=== PATIENT | male | born 1935 | race Caucasian/White ===

== ENCOUNTER → 2017-10-28 12:32 | Outpatient (CLI) | payer OTHER, SELFPAY ==
[2017-10-28 13:06] LABS: Add Manual Diff / Slide Review NO; Basophils Percent Auto 0.5 % (0-2); Eosinophils Percent Auto 2.3 % (2-4); Hematocrit 39.9 % (41-53); Hemoglobin 13.8 g/dL (13.5-17.5); Mean Corpuscular HGB Conc 34.7 % (30-36); Mean Corpuscular Hemoglobin 31.6 PG (26-34); Mean Corpuscular Volume 91.2 fL (80-100); Monocytes Percent Auto 6.3 % (3-14); Neutrophils Absolute Auto 6200 /uL (3000-5900); Neutrophils Percent Auto 72.9 % (50-75); Platelet Count 213 X10^3/uL (150-400); Red Blood Cell Count 4.38 X10^6/uL (4.5-5.9); Red Cell Distribution Width 12.4 % (11.6-14.8); White Blood Cell Count 8.5 X10^3/uL (4.5-11.0)
[2017-10-28 13:25] LABS: Alanine Aminotransferase 21 IU/L (21-72); Albumin 4.2 g/dL (3.5-5.0); Albumin Globulin Ratio 1.6 (1.0-2.8); Alkaline Phosphatase 68 U/L (38-126); Aspartate Aminotransferase 29 IU/L (17-59); Bilirubin Total 0.3 mg/dL (0.2-1.3); Blood Urea Nitrogen 26 mg/dL (9-20); Calcium 8.9 mg/dL (8.4-10.2); Carbon Dioxide 29 mmol/L (22-32); Chloride 98 mmol/L (98-107); Estimated Glomerular Filt Rate 52.9 mL/min (>60); Globulin 2.7 g/dL (1.7-4.1); Glucose 112 mg/dL (80-110); HEMOLYSIS 18 (0-50); Potassium 4.5 mmol/L (3.4-5.1); Sodium 136 mmol/L (137-145); Total Protein 6.9 g/dL (6.3-8.2)
[2017-10-28 15:35] LABS: Free T4, Direct Thyroxine 1.12 ng/dL (0.78-2.19)
[2017-10-28 15:49] LABS: Thyroid Stimulating Hormone 2.95 uIU/mL (0.47-4.68)
== END ==
PROVIDERS: PCP Physician Assistant; Visit Provider Physician Assistant
DX: E03.9 Hypothyroidism, unspecified (principal); I10 Essential (primary) hypertension
CPT/HCPCS: 36415; 80053; 84439; 84443; 85025

== ENCOUNTER 2018-01-22 07:18 | Emergency (ER) | payer OTHER, SELFPAY ==
[2018-01-22] VITALS (28 sets, daily range): BP systolic 57–242; BP diastolic 24–215; PULSE 74–102; RESP 12–22; TEMP 36.4–36.6; O2SAT 88–100; BMI 27.8
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
--- NOTE | 2018-01-22 07:38 | PC.NURSE ---
while maintaining cervical stabilization, moved from stretcher to ct table, remain alert and awake, reports, left leg pain, skin warm dry pink. remain with cervical collar and denies nausea.
[2018-01-22 07:39] LABS: Add Manual Diff / Slide Review NO; Basophils Percent Auto 0.4 % (0-2); Eosinophils Percent Auto 2.7 % (2-4); Hematocrit 38.9 % (41-53); Hemoglobin 13.2 g/dL (13.5-17.5); Lymphocytes Percent Auto 22.8 % (25-40); Mean Corpuscular HGB Conc 33.9 % (30-36); Mean Corpuscular Hemoglobin 31.4 PG (26-34); Mean Corpuscular Volume 92.5 fL (80-100); Monocytes Percent Auto 4.6 % (3-14); Neutrophils Absolute Auto 6300 /uL (3000-5900); Neutrophils Percent Auto 69.5 % (50-75); Platelet Count 223 X10^3/uL (150-400); Red Blood Cell Count 4.21 X10^6/uL (4.5-5.9); Red Cell Distribution Width 12.6 % (11.6-14.8); White Blood Cell Count 9.1 X10^3/uL (4.5-11.0)
--- NOTE | 2018-01-22 07:45 | PC.NURSE ---
pt doesnt want to call family at this time.
[2018-01-22 07:47] LABS: Prothrombin Time 10.7 SECONDS (10.1-12.7)
[2018-01-22 07:50] LABS: PTT Partial Thromboplastin Tim 27 SECONDS (26.4-36.2)
--- NOTE | 2018-01-22 07:50 | PC.NURSE ---
right eye sclera red.
[2018-01-22 07:52] LABS: Alanine Aminotransferase 45 IU/L (21-72); Albumin 4.2 g/dL (3.5-5.0); Albumin Globulin Ratio 1.6 (1.0-2.8); Alkaline Phosphatase 74 U/L (38-126); Aspartate Aminotransferase 49 IU/L (17-59); BUN Creatinine Ratio 21.5 (6-22); Bilirubin Total 0.6 mg/dL (0.2-1.3); Blood Urea Nitrogen 28 mg/dL (9-20); Calcium 9.1 mg/dL (8.4-10.2); Carbon Dioxide 28 mmol/L (22-32); Chloride 103 mmol/L (98-107); Creatine Kinase 197 U/L (55-170); Estimated Glomerular Filt Rate 52.9 mL/min (>60); Ethanol (ETOH) < 10 mg/dL; Globulin 2.6 g/dL (1.7-4.1); Glucose 123 mg/dL (80-110); HEMOLYSIS 17 (0-50); Lipase 69 U/L (23-300); Potassium 4.6 mmol/L (3.4-5.1); Sodium 141 mmol/L (137-145); Total Protein 6.8 g/dL (6.3-8.2)
[2018-01-22 08:03] LABS: Troponin I 0.014 ng/mL (0.01-0.034)
[2018-01-22 08:06] LABS: CKMB % Relative Index 1.8 % (1.5-5.0); Creatine Kinase MB 3.45 ng/mL (<2.37)
--- NOTE | 2018-01-22 08:10 | PC.NURSE ---
wallet, blue shirt, red jacket with orange vest reflector,hat, pair of shoes. black pants with suspender, white tshirt,orange shopping bag ,glasses.
--- NOTE | 2018-01-22 08:12 | PC.NURSE ---
top head superficial lac, right hand superficial lac, left leg cleaned with hibiclen and warm water, tolerated well, right wrist with scant bleeding, bandaid applied.
--- NOTE | 2018-01-22 08:24 | PC.NURSE ---
denies head, neck, chest , abdomin, back pain, only left elbow and left leg.
[2018-01-22] MEDS: TETANUS DIPHTHERIA TOXOIDS 0.5 ML VIAL IM (08:28)
[2018-01-22] MEDS: SODIUM CHLORIDE 0.9% 1,000 ML 1000 ML IV ×2 (08:30→10:06)
--- NOTE | 2018-01-22 08:33 | PC.NURSE ---
c/o nausea, pale and diaphoretic, bp [address] dr ocasio made aware. medicated for comfort reverse [place], iv fluids infusing, pt remain alert and awake, smiling.
[2018-01-22] MEDS: ONDANSETRON 4 MG/2 ML INJ IV ×2 (08:44→10:06)
--- NOTE | 2018-01-22 10:01 | PC.NURSE ---
pt became nausea, pale and diaphoretic, bp 57's dr ocasio at medicated for comfort, reverse [place]
--- NOTE | 2018-01-22 10:07 | PC.NURSE ---
reporting right hand feeling numb, dr ocasio at bs.
--- NOTE | 2018-01-22 10:08 | PC.NURSE ---
pt request DNR, dr ocasio at bs. , witnessed by me.
--- NOTE | 2018-01-22 10:20 | PC.NURSE ---
2nd ns infusing at rac, 250bolus, changed to 50ml/hr. infusing prbc
--- NOTE | 2018-01-22 10:23 | PC.NURSE ---
c/o back of head pain, dr ocasio, blurry vision.
--- NOTE | 2018-01-22 10:24 | PC.NURSE ---
dr ocasio at . [facility] crew here.
--- NOTE | 2018-01-22 10:35 | PC.NURSE ---
bag of norepinephrine given to airlift crew, carlos graves;
--- NOTE | 2018-01-22 10:47 | PC.NURSE ---
[place] started norepi.
--- NOTE | 2018-01-22 10:58 | PC.NURSE ---
2nd unit blood given to airlift.
--- NOTE | 2018-01-22 11:53 | PC.NURSE ---
at 11, transfer care to [facility], pt became hypotensive, but remain alert and awake, norepi initiated by [facility], pelvic stabilization applied, with while maintaining spinal immobilization, tolerated well, pt states, felt better with preassure, pt able to wiggle bilateral lower legs. pt continue to be infusing prbc, no adv rxs noted.
== END 2018-01-22 11:00 | disposition short-term general hospital (02) ==
PROVIDERS: Emergency Provider Emergency Medicine; PCP Physician Assistant
DX: S22.009A Unspecified fracture of unspecified thoracic vertebra, initial encounter for closed fracture (principal); S06.0X9A Concussion with loss of consciousness of unspecified duration, initial encounter; V09.3XXA Pedestrian injured in unspecified traffic accident, initial encounter
CPT/HCPCS: 36430; 36591; 70450; 71045; 71260; 72125; 72170; 74177; 80053; 80320; 82550; 82553; 82962; 83690; 84484; 85025; 85610; 85730; 86850; 86900; 86901; 90471; 90714; 93005; 93010; 96361; 96374; 96376; 99285; 99291; 99292; P9016; G0390; J2405; Q9967

== ENCOUNTER → 2018-02-10 07:27 | Outpatient (REF) | payer OTHER, SELFPAY ==
[2018-02-10 07:55] LABS: Add Manual Diff / Slide Review NO; Basophils Percent Auto 1.3 % (0-2); Eosinophils Percent Auto 6.5 % (2-4); Hematocrit 29.9 % (41-53); Hemoglobin 10.1 g/dL (13.5-17.5); Lymphocytes Percent Auto 16.5 % (25-40); Mean Corpuscular HGB Conc 33.9 % (30-36); Mean Corpuscular Hemoglobin 31.7 PG (26-34); Mean Corpuscular Volume 93.5 fL (80-100); Neutrophils Absolute Auto 4800 /uL (3000-5900); Neutrophils Percent Auto 68.7 % (50-75); Platelet Count 525 X10^3/uL (150-400); Red Blood Cell Count 3.19 X10^6/uL (4.5-5.9); Red Cell Distribution Width 14.2 % (11.6-14.8)
[2018-02-10 08:13] LABS: BUN Creatinine Ratio 26.5 (6-22); Blood Urea Nitrogen 45 mg/dL (9-20); Calcium 8.7 mg/dL (8.4-10.2); Carbon Dioxide 23 mmol/L (22-32); Chloride 104 mmol/L (98-107); Estimated Glomerular Filt Rate 38.8 mL/min (>60); Glucose 85 mg/dL (80-110); HEMOLYSIS < 15 (0-50); Sodium 139 mmol/L (137-145)
== END ==
LOC: LAB 07:27
PROVIDERS: PCP Physician Assistant; Visit Provider Hospitalist
DX: D50.0 Iron deficiency anemia secondary to blood loss (chronic) (principal)
CPT/HCPCS: 36415; 80048; 85025

== ENCOUNTER → 2018-02-14 08:11 | Outpatient (REF) | payer OTHER, SELFPAY ==
[2018-02-14 08:51] LABS: Add Manual Diff / Slide Review NO; Basophils Percent Auto 1.5 % (0-2); Eosinophils Percent Auto 8.8 % (2-4); Hematocrit 29.5 % (41-53); Hemoglobin 10.2 g/dL (13.5-17.5); Lymphocytes Percent Auto 17.6 % (25-40); Mean Corpuscular HGB Conc 34.5 % (30-36); Mean Corpuscular Hemoglobin 31.9 PG (26-34); Mean Corpuscular Volume 92.4 fL (80-100); Monocytes Percent Auto 8.8 % (3-14); Neutrophils Absolute Auto 4900 /uL (3000-5900); Neutrophils Percent Auto 63.3 % (50-75); Platelet Count 374 X10^3/uL (150-400); Red Blood Cell Count 3.19 X10^6/uL (4.5-5.9); Red Cell Distribution Width 13.7 % (11.6-14.8); White Blood Cell Count 7.7 X10^3/uL (4.5-11.0)
[2018-02-14 09:06] LABS: BUN Creatinine Ratio 26.4 (6-22); Blood Urea Nitrogen 37 mg/dL (9-20); Calcium 8.7 mg/dL (8.4-10.2); Carbon Dioxide 24 mmol/L (22-32); Chloride 102 mmol/L (98-107); Estimated Glomerular Filt Rate 48.5 mL/min (>60); Glucose 76 mg/dL (80-110); HEMOLYSIS < 15 (0-50); Potassium 4.8 mmol/L (3.4-5.1); Sodium 136 mmol/L (137-145)
== END ==
LOC: LAB 08:11
PROVIDERS: PCP Physician Assistant; Visit Provider Hospitalist
DX: Z98.890 Other specified postprocedural states (principal)
CPT/HCPCS: 36415; 80048; 85025

== ENCOUNTER → 2018-02-17 07:21 | Outpatient (REF) | payer OTHER, SELFPAY ==
[2018-02-17 09:28] LABS: HEMOLYSIS < 15 (0-50); Iron 44 ug/dL (49-181)
[2018-02-17 09:39] LABS: Percent Iron Saturation 17 % (20-50); Total Iron Binding Capacity 261 ug/dL (261-462); Transferrin 206 mg/dL (206-381)
== END ==
LOC: LAB 07:21
PROVIDERS: PCP Physician Assistant; Visit Provider Hospitalist
DX: Z86.2 Personal history of diseases of the blood and blood-forming organs and certain disorders involving the immune mechanism (principal)
CPT/HCPCS: 36415; 83540; 83550

== ENCOUNTER → 2018-02-26 09:03 | Outpatient (REF) | payer OTHER, SELFPAY ==
[2018-02-26 10:26] LABS: Add Manual Diff / Slide Review NO; Basophils Percent Auto 1.2 % (0-2); Eosinophils Percent Auto 15.5 % (2-4); Hematocrit 27.5 % (41-53); Hemoglobin 9.6 g/dL (13.5-17.5); Lymphocytes Percent Auto 14.8 % (25-40); Mean Corpuscular HGB Conc 34.8 % (30-36); Mean Corpuscular Hemoglobin 31.8 PG (26-34); Mean Corpuscular Volume 91.1 fL (80-100); Monocytes Percent Auto 6.1 % (3-14); Neutrophils Absolute Auto 5300 /uL (3000-5900); Neutrophils Percent Auto 62.4 % (50-75); Platelet Count 356 X10^3/uL (150-400); Red Blood Cell Count 3.02 X10^6/uL (4.5-5.9); Red Cell Distribution Width 13.2 % (11.6-14.8); White Blood Cell Count 8.5 X10^3/uL (4.5-11.0)
[2018-02-26 10:38] LABS: BUN Creatinine Ratio 27.3 (6-22); Blood Urea Nitrogen 41 mg/dL (9-20); Calcium 8.9 mg/dL (8.4-10.2); Carbon Dioxide 23 mmol/L (22-32); Chloride 103 mmol/L (98-107); Estimated Glomerular Filt Rate 44.8 mL/min (>60); Glucose 70 mg/dL (80-110); HEMOLYSIS < 15 (0-50); Potassium 4.7 mmol/L (3.4-5.1); Sodium 137 mmol/L (137-145)
== END ==
LOC: LAB 09:03
PROVIDERS: PCP Physician Assistant; Visit Provider Hospitalist
DX: Z86.2 Personal history of diseases of the blood and blood-forming organs and certain disorders involving the immune mechanism (principal)
CPT/HCPCS: 80048; 85025

== ENCOUNTER → 2018-03-05 08:38 | Outpatient (REF) | payer OTHER, SELFPAY ==
[2018-03-05 09:59] LABS: Alanine Aminotransferase 25 IU/L (21-72); Albumin 3.4 g/dL (3.5-5.0); Albumin Globulin Ratio 1.1 (1.0-2.8); Alkaline Phosphatase 138 U/L (38-126); Aspartate Aminotransferase 23 IU/L (17-59); Bilirubin Total 0.1 mg/dL (0.2-1.3); Globulin 3.1 g/dL (1.7-4.1); HEMOLYSIS < 15 (0-50); Total Protein 6.5 g/dL (6.3-8.2)
[2018-03-05 10:27] LABS: Thyroid Stimulating Hormone 4.83 uIU/mL (0.47-4.68)
== END ==
LOC: LAB 08:38
PROVIDERS: PCP Physician Assistant; Visit Provider Nurse Practitioner Family
DX: E03.9 Hypothyroidism, unspecified (principal)
CPT/HCPCS: 36415; 80076; 84443

== ENCOUNTER → 2018-11-12 07:07 | Outpatient (CLI) | payer OTHER, SELFPAY ==
[2018-11-12 08:31] LABS: Add Manual Diff / Slide Review NO; Basophils Absolute Auto 0 /uL (0-100); Basophils Percent Auto 0.7 % (0-2); Eosinophils Absolute Auto 200 /uL (0-450); Eosinophils Percent Auto 3.4 % (2-4); Hematocrit 38.9 % (41-53); Hemoglobin 13.2 g/dL (13.5-17.5); Lymphocytes Absolute Auto 1400 /uL (1100-4500); Lymphocytes Percent Auto 23.7 % (25-40); Mean Corpuscular HGB Conc 33.9 % (30-36); Mean Corpuscular Hemoglobin 31.3 PG (26-34); Mean Corpuscular Volume 92.4 fL (80-100); Monocytes Absolute Auto 300 /uL (0-900); Monocytes Percent Auto 5.7 % (3-14); Neutrophils Absolute Auto 4000 /uL (1500-7000); Neutrophils Percent Auto 66.5 % (50-75); Platelet Count 252 X10^3/uL (150-400); Red Blood Cell Count 4.21 X10^6/uL (4.5-5.9); Red Cell Distribution Width 12.9 % (11.6-14.8)
[2018-11-12 08:37] LABS: Alanine Aminotransferase 17 IU/L (21-72); Albumin 4.3 g/dL (3.5-5.0); Albumin Globulin Ratio 1.4 (1.0-2.8); Alkaline Phosphatase 89 U/L (38-126); Aspartate Aminotransferase 33 IU/L (17-59); Bilirubin Total 0.6 mg/dL (0.2-1.3); Blood Urea Nitrogen 24 mg/dL (9-20); Calcium 9.3 mg/dL (8.4-10.2); Carbon Dioxide 26 mmol/L (22-32); Chloride 104 mmol/L (98-107); Cholesterol 142 mg/dL (140-199); Estimated Glomerular Filt Rate 57.8 mL/min (>60); Glucose 88 mg/dL (80-110); HDL Cholesterol 52 mg/dL (40-60); HEMOLYSIS 23 (0-50); LDL Cholesterol Calculated 68 mg/dL (<100); Potassium 4.5 mmol/L (3.4-5.1); Sodium 141 mmol/L (137-145); Total Protein 7.3 g/dL (6.3-8.2); Triglycerides 111 mg/dL (35-150)
[2018-11-12 09:06] LABS: Prostate Specific Antigen 5.94 ng/mL (0.10-4.00)
[2018-11-12 09:08] LABS: Free T4, Direct Thyroxine 1.04 ng/dL (0.78-2.19)
[2018-11-12 09:22] LABS: Thyroid Stimulating Hormone 5.44 uIU/mL (0.47-4.68)
== END ==
PROVIDERS: PCP Physician Assistant; Visit Provider Physician Assistant
DX: I10 Essential (primary) hypertension (principal); R97.20 Elevated prostate specific antigen [PSA]; E78.49 Other hyperlipidemia; E03.9 Hypothyroidism, unspecified
CPT/HCPCS: 36415; 80053; 80061; 84153; 84439; 84443; 85025

== ENCOUNTER → 2019-10-10 12:15 | Outpatient (CLI) | payer OTHER, SELFPAY ==
[2019-10-11 18:19] LABS: COVID19 Sendout Not Detected (Not Detect)
== END ==
PROVIDERS: PCP Physician Assistant; Visit Provider Physician Assistant
DX: Z01.812 Encounter for preprocedural laboratory examination (principal)
CPT/HCPCS: 87635

== ENCOUNTER 2019-10-13 07:59 | Day surgery (SDC) | payer OTHER, SELFPAY | END 2019-10-13 08:00 | disposition home or self-care (01) | LOC: OR 08:00 | PROVIDERS: PCP Physician Assistant; Referring Provider Ophthalmology; Visit Provider Ophthalmology | DX: Z53.9 Procedure and treatment not carried out, unspecified reason (principal) ==

== ENCOUNTER → 2020-04-27 09:04 | Outpatient (CLI) | payer OTHER, SELFPAY ==
[2020-04-27 09:49] LABS: Add Manual Diff / Slide Review NO; Basophils Absolute Auto 0 /uL (0-100); Basophils Percent Auto 0.5 % (0-2); Eosinophils Absolute Auto 200 /uL (0-450); Eosinophils Percent Auto 3.3 % (2-4); Hemoglobin 13.8 g/dL (13.5-17.5); Lymphocytes Absolute Auto 1600 /uL (1100-4500); Lymphocytes Percent Auto 23.2 % (25-40); Mean Corpuscular HGB Conc 32.9 % (30-36); Mean Corpuscular Hemoglobin 30.4 PG (26-34); Mean Corpuscular Volume 92.5 fL (80-100); Monocytes Absolute Auto 500 /uL (0-900); Monocytes Percent Auto 7.8 % (3-14); Neutrophils Absolute Auto 4500 /uL (1500-7000); Neutrophils Percent Auto 65.2 % (50-75); Platelet Count 238 X10^3/uL (150-400); Red Blood Cell Count 4.54 X10^6/uL (4.5-5.9); Red Cell Distribution Width 12.6 % (11.6-14.8); White Blood Cell Count 6.8 X10^3/uL (4.5-11.0)
[2020-04-27 10:02] LABS: Alanine Aminotransferase 21 IU/L (<50); Albumin 4.4 g/dL (3.5-5.0); Albumin Globulin Ratio 1.4 (1.0-2.8); Alkaline Phosphatase 99 U/L (38-126); Aspartate Aminotransferase 36 IU/L (17-59); BUN Creatinine Ratio 18.9 (6-22); Bilirubin Total 0.4 mg/dL (0.2-1.3); Blood Urea Nitrogen 25 mg/dL (9-20); Calcium 9.4 mg/dL (8.4-10.2); Carbon Dioxide 30 mmol/L (22-32); Chloride 104 mmol/L (98-107); Cholesterol 171 mg/dL (140-199); Estimated Glomerular Filt Rate 51.7 mL/min (>60); Globulin 3.2 g/dL (1.7-4.1); Glucose 98 mg/dL (80-110); HDL Cholesterol 64 mg/dL (40-60); HEMOLYSIS < 15 (0-50); LDL Cholesterol Calculated 73 mg/dL (<100); Potassium 4.6 mmol/L (3.4-5.1); Sodium 138 mmol/L (137-145); Total Protein 7.6 g/dL (6.3-8.2); Triglycerides 171 mg/dL (35-150)
[2020-04-27 10:33] LABS: Prostate Specific Antigen 7.56 ng/mL (0.10-4.00)
[2020-04-27 10:40] LABS: TSH w/ Reflex to FT4 4.46 uIU/mL (0.47-4.68)
== END ==
PROVIDERS: PCP Physician Assistant; Referring Provider Physician Assistant; Visit Provider Physician Assistant
DX: I10 Essential (primary) hypertension (principal); R97.20 Elevated prostate specific antigen [PSA]; E03.9 Hypothyroidism, unspecified; E78.49 Other hyperlipidemia
CPT/HCPCS: 36415; 80053; 80061; 84153; 84443; 85025

== ENCOUNTER → 2020-11-07 09:05 | Outpatient (CLI) | payer OTHER, SELFPAY ==
--- NOTE | 2020-11-07 | DI.ECHO.S_ITS ---
[facility] +---------+ : : [address] : : : : [id number] : : : : Phone: [phone] Echocardiogram Report + + :Name: SUMAYA CHERRY Study Date: 11/07/2020 Height: 70 in : :[facility] ReadingLocation: Weight: 185 lb : : Gender: Male BSA: 2.0 m2 : :: 1935 Age: 85 yrs BP: 130/69 mmHg: :Reason For Study: AORTIC STENOSIS : :Ordering Physician: BRAULIO, : :MICHAEL Performed By: Shanelle Victor : :Referring: EFRAIN CRAIG : + + Interpretation Summary 1) Normal left ventricular thickness, size, wall motion, and systolic function (EF 60-65%). 2) Normal right ventricular size and function. 3) Severe aortic stenosis present (valve area 0.8cm2, mean gradient 54mmHg, severity ratio 0.27) 4) There is mild aortic regurgitation. 5) Compared to the Echo done 11/20/2018, aortic stenosis has progressed from moderate to severe on this study. Procedure: A two-dimensional transthoracic echocardiogram with color flow and Doppler was performed. The study quality was technically adequate. Comparison is made with the echocardiogram of 11/20/2018. The patient was in sinus rhythm with heart rates between 62-68 bpm during the exam. Left Ventricle: The left ventricle is normal in size and wall thickness. The ejection fraction is estimated to be 60-65%. Left ventricular systolic function appears normal without focal wall motion abnormalities. Right Ventricle: The right ventricle is normal in size and function. Atria: The left atrial size is normal. Right atrial size is normal. There is no Doppler evidence for an interatrial shunt. Mitral Valve: The mitral valve leaflets appear borderline thickened, but open well. There is trace mitral regurgitation. Aortic Valve: The aortic valve is not well visualized. The aortic valve is heavily calcified. There is severe aortic stenosis. The peak aortic velocity is 4.5 m/sec. The aortic valve mean gradient is 54 mmHg. The calculated aortic valve area is .82 cm2. There is mild aortic regurgitation. Tricuspid Valve: The tricuspid valve is normal in structure and function. There is trace tricuspid regurgitation. Pulmonary artery pressures cannot be estimated because of the lack of a measurable TR jet velocity but the IVC suggests a CVP of around 3 mmHg. Pulmonic Valve: The pulmonic valve is not well visualized. Great Vessels: The aortic root is normal size. The dimensions of the ascending aorta are normal. The IVC is of normal diameter and collapses greater than 50% with a sniff. This suggests a low right atrial pressure of 3 mm Hg. Pericardium/ Pleura There is no pericardial effusion. There is no pleural effusion. MMode/2D Measurements & Calculations LVIDd: 4.6 cm LVOT diam: 2.1 cm LVIDs: 3.1 cm Ao root diam: 3.3 cm FS: 32.5 % asc Aorta Diam: 2.7 cm IVSd: 1.0 cm LVPWd: 0.94 cm LV robison. diameter/BSA (cm/m^2): 2.3 LV sys. diameter/BSA (cm/m^2): 1.5 LA A2 area: 21.5 cm2 RA long axis: 5.2 cm LA A4 area: 17.8 cm2 RA area: 14.3 cm2 LA length (vol): 5.1 cm RA vol: 33.4 ml LA vol: 63.3 ml RA : 16.5 ml/m2 LA vol index: 31.3 ml/m2 IVC diam: 0.84 cm RVD1 (basal): 3.3 cm TAPSE: 1.9 cm Doppler Measurements & Calculations Ao V2 max: 449.7 cm/sec LVOT Max Michael: 105.6 cm/sec Ao V2 mean: 354.9 cm/sec LV V1 max P.5 mmHg Ao max P.9 mmHg LV V1 VTI: 23.8 cm Ao mean P.3 mmHg MAGED(I,D): 0.93 cm2 Ao V2 VTI: 89.2 cm MAGED(V,D): 0.82 cm2 sev ratio: 0.27 MAGED indexed to BSA (cm^2/m^2): 0.46 AI P1/2t: 581.5 msec AI dec slope: 158.6 cm/sec2 MV E max michael: 68.7 cm/sec PA pr(Accel): 13.9 mmHg MV A max michael: 121.1 cm/sec MV E/A: 0.57 Med Peak E' Michael: 6.2 cm/sec E/E' med: 11.0 Lat Peak E' Michael: 7.7 cm/sec E/E' lat: 8.9 E/e' average: 10.0 MV dec time: 0.28 sec SV(LVOT): 83.1 ml Reading Physician:11:27 AM
== END ==
PROVIDERS: PCP Physician Assistant; Referring Provider Internal Medicine Cardiovascular Disease; Visit Provider Internal Medicine Cardiovascular Disease
DX: I35.2 Nonrheumatic aortic (valve) stenosis with insufficiency (principal)
CPT/HCPCS: 93306

== ENCOUNTER → 2020-12-26 07:34 | Outpatient (CLI) | payer OTHER, SELFPAY ==
[2020-12-26 08:26] LABS: Add Manual Diff / Slide Review NO; Basophils Absolute Auto 0 /uL (0-100); Basophils Percent Auto 0.6 % (0-2); Eosinophils Absolute Auto 200 /uL (0-450); Eosinophils Percent Auto 3.3 % (2-4); Hematocrit 40.3 % (41-53); Hemoglobin 13.7 g/dL (13.5-17.5); Lymphocytes Absolute Auto 1500 /uL (1100-4500); Lymphocytes Percent Auto 21.6 % (25-40); Mean Corpuscular HGB Conc 34.1 % (30-36); Mean Corpuscular Hemoglobin 31.2 PG (26-34); Mean Corpuscular Volume 91.5 fL (80-100); Monocytes Absolute Auto 500 /uL (0-900); Monocytes Percent Auto 7.1 % (3-14); Neutrophils Absolute Auto 4600 /uL (1500-7000); Neutrophils Percent Auto 67.4 % (50-75); Platelet Count 214 X10^3/uL (150-400); Red Blood Cell Count 4.41 X10^6/uL (4.5-5.9); Red Cell Distribution Width 12.9 % (11.6-14.8); White Blood Cell Count 6.8 X10^3/uL (4.5-11.0)
[2020-12-26 09:01] LABS: Alanine Aminotransferase 21 IU/L (<50); Albumin 4.2 g/dL (3.5-5.0); Albumin Globulin Ratio 1.4 (1.0-2.8); Alkaline Phosphatase 73 U/L (38-126); Aspartate Aminotransferase 32 IU/L (17-59); BUN Creatinine Ratio 19.7 (6-22); Bilirubin Total 0.4 mg/dL (0.2-1.3); Blood Urea Nitrogen 28 mg/dL (9-20); Calcium 9.2 mg/dL (8.4-10.2); Carbon Dioxide 26 mmol/L (22-32); Chloride 106 mmol/L (98-107); Cholesterol 121 mg/dL (140-199); Estimated Glomerular Filt Rate 47.4 mL/min (>60); Globulin 2.9 g/dL (1.7-4.1); Glucose 92 mg/dL (80-110); HDL Cholesterol 54 mg/dL (40-60); HEMOLYSIS < 15 (0-50); LDL Cholesterol Calculated 44 mg/dL (<100); Potassium 4.8 mmol/L (3.4-5.1); Sodium 139 mmol/L (137-145); Total Protein 7.1 g/dL (6.3-8.2); Triglycerides 115 mg/dL (35-150)
[2020-12-26 09:13] LABS: Free T4, Direct Thyroxine 1.12 ng/dL (0.78-2.19)
[2020-12-26 09:27] LABS: Thyroid Stimulating Hormone 5.51 uIU/mL (0.47-4.68)
== END ==
PROVIDERS: PCP Physician Assistant; Referring Provider Physician Assistant; Visit Provider Physician Assistant
DX: E78.5 Hyperlipidemia, unspecified (principal); E03.9 Hypothyroidism, unspecified; N18.30 Chronic kidney disease, stage 3 unspecified; I10 Essential (primary) hypertension
CPT/HCPCS: 36415; 80053; 80061; 84439; 84443; 85025

== ENCOUNTER → 2021-05-22 11:37 | Outpatient (CLI) | payer OTHER, SELFPAY ==
--- NOTE | 2021-05-22 | DI.MRI.S_ITS ---
PROCEDURE: MR ANKLE LT WO CON INDICATIONS: Pain in left ankle and joints of left foot TECHNIQUE: Noncontrast sagittal T1 spin echo and T2 fast spin echo with fat saturation, axial proton density fast spin echo and T2 fast spin echo with fat saturation, coronal T1 spin echo and T2 fast spin echo with fat saturation through the ankle/hindfoot. COMPARISON: None. FINDINGS: Image quality: Excellent. Bones and joints: No bone marrow contusions or fractures. No osteochondral injuries of the talar dome. No pathologic joint effusions. Medial structures: The posterior tibialis, flexor digitorum longus, and flexor hallucis longus tendons are intact. Fluid surrounds the flexor hallucis longus (4-25), concerning for tenosynovitis. The posterior tibial neurovascular bundle appears normal within the tarsal tunnel, without extrinsic mass effect. The deltoid and spring ligaments appear intact. Lateral structures: The anterior talofibular, calcaneofibular, and posterior talofibular ligaments appear intact. More superiorly, the anterior and posterior tibiofibular ligaments appear intact, as is the intermalleolar ligament. The tibiofibular syndesmosis is normal in width at 2 mm or less. The peroneus longus and brevis tendons demonstrate normal location and morphology. The sinus tarsi demonstrates normal fatty signal, without edema, fibrosis, or cyst formation. Visualized sinus tarsi components (cervical ligament, interosseous talocalcaneal ligament, roots of the inferior extensor retinaculum) appear normal. Anterior structures: The tibialis anterior, extensor hallucis longus, and extensor digitorum longus tendons appear intact. The dorsal talonavicular ligament appears intact. Posterior and plantar structures: T2 hyperintense signal within the Achilles tendon, spanning approximately 2.4 cm, compatible with mucoid degeneration and/or tear. Medial and lateral bands of the plantar fascia are of normal thickness. 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 Reticulated and confluent T2 hyperintense signal within the soft tissues, compatible with diffuse edema/cellulitis. IMPRESSION: 1. Tenosynovitis predominant valve in the distal aspect of the flexor hallucis longus. 2. Mucoid degeneration and/or tear of the Achilles tendon as detailed above. New line 3. Diffuse soft tissue edema/cellulitis. Dictated by: Melvin Padilla M.D. on 05/22/2021 at 12:43 Approved by: Melvin Padilla M.D. on 05/22/2021 at 12:50
== END ==
PROVIDERS: PCP Physician Assistant; Referring Provider Podiatrist; Visit Provider Podiatrist
DX: M65.872 Other synovitis and tenosynovitis, left ankle and foot (principal); M25.572 Pain in left ankle and joints of left foot
CPT/HCPCS: 73721

== ENCOUNTER → 2022-01-23 08:30 | Outpatient (CLI) | payer OTHER, SELFPAY ==
[2022-01-23 09:21] LABS: Add Manual Diff / Slide Review NO; Basophils Absolute Auto 0 /uL (0-100); Basophils Percent Auto 0.8 % (0-2); Eosinophils Absolute Auto 300 /uL (0-450); Eosinophils Percent Auto 5.3 % (2-4); Hematocrit 40.1 % (41-53); Hemoglobin 13.9 g/dL (13.5-17.5); Lymphocytes Absolute Auto 1300 /uL (1100-4500); Lymphocytes Percent Auto 20.7 % (25-40); Mean Corpuscular HGB Conc 34.6 % (30-36); Mean Corpuscular Hemoglobin 31.1 PG (26-34); Mean Corpuscular Volume 89.9 fL (80-100); Monocytes Absolute Auto 500 /uL (0-900); Monocytes Percent Auto 7.8 % (3-14); Neutrophils Absolute Auto 4000 /uL (1500-7000); Neutrophils Percent Auto 65.4 % (50-75); Platelet Count 200 X10^3/uL (150-400); Red Blood Cell Count 4.46 X10^6/uL (4.5-5.9); Red Cell Distribution Width 13.1 % (11.6-14.8); White Blood Cell Count 6.2 X10^3/uL (4.5-11.0)
[2022-01-23 09:36] LABS: BUN Creatinine Ratio 20.1 (6-22); Blood Urea Nitrogen 27 mg/dL (9-20); Calcium 8.8 mg/dL (8.4-10.2); Carbon Dioxide 26 mmol/L (22-32); Chloride 102 mmol/L (98-107); Cholesterol 121 mg/dL (140-199); Estimated Glomerular Filt Rate 52 mL/min (>60); Glucose 91 mg/dL (80-110); HDL Cholesterol 50 mg/dL (40-60); LDL Cholesterol Calculated 47 mg/dL (<100); Sodium 140 mmol/L (137-145); Triglycerides 119 mg/dL (35-150)
[2022-01-23 09:38] LABS: HEMOLYSIS 62 (0-50)
== END ==
PROVIDERS: PCP Physician Assistant; Referring Provider Internal Medicine Cardiovascular Disease; Visit Provider Internal Medicine Cardiovascular Disease
DX: I10 Essential (primary) hypertension (principal); I35.0 Nonrheumatic aortic (valve) stenosis
CPT/HCPCS: 36415; 80048; 80061; 85025

== ENCOUNTER → 2022-04-20 12:21 | Outpatient (CLI) | payer OTHER, SELFPAY ==
--- NOTE | 2022-04-20 | DI.ECHO.S_ITS ---
[facility] + [facility] +---------+ : : [address] : [address] : : : : [place], : : : : [place] [id number] : : : : Phone: [phone] Formerly [id number] Echocardiogram Report + + :Name: SUMAYA CHERRY Study Date: 04/20/2022 Height: 27.5 in: :[facility] ReadingLocation: Weight: 209 lb : : Gender: Male BSA: 1.1 m2 : :: 1935 Age: 86 yrs BP: 144/75 mmHg: :Reason For Study: Nonrheumatic Aortic Stenosis : :Ordering Physician: Efrain : :Delaney Craig Performed By: Shanelle Vasquez : :Referring: EFRAIN CRAIG : + + Interpretation Summary 1) Mildly increased left ventricular thickness (concentric) with normal size, normal wall motion, and normal systolic function (EF 60-65%). 2) Normal right ventricular size and function. 3) Severe aortic stenosis present (valve area 0.8cm2, mean gradient 58mmHg, severity ratio 0.24) 4) There is mild aortic regurgitation. 5) Compared to the Echo done 11/07/2020, no significant change. Procedure: A two-dimensional transthoracic echocardiogram with color flow and Doppler was performed. The patient was in sinus bradycardia with heart rates between 58-64 bpm during the exam. Left Ventricle: The left ventricle is normal in size. Left ventricular wall thickness is mildly increased. The ejection fraction is estimated to be 60- 65%. Diastolic parameters suggest a relaxation abnormality of the left ventricle, consistent with probable normal filling pressures. Right Ventricle: The right ventricle is normal in size and function. Atria: The left atrium is moderately dilated. The right atrium is normal in size. There is no Doppler evidence for an interatrial shunt. Mitral Valve: The mitral valve is normal in structure and function. There is no mitral regurgitation noted. Aortic Valve: The aortic valve is trileaflet. The aortic valve is heavily calcified. There is severe aortic stenosis. The aortic valve mean gradient is 57.6 mmHg. Compared to the prior echo study, there has been an increase in the severity of aortic stenosis. There is mild aortic regurgitation. Tricuspid Valve: The tricuspid valve is normal in structure and function. There is a trace or physiologic amount of tricuspid regurgitation. The right ventricular systolic pressure is estimated to be at least 26 mmHg based on an estimated right atrial pressure of 3 mm Hg. Pulmonic Valve: The pulmonic valve leaflets are thin and pliable; valve motion is normal. There is no pulmonic valvular regurgitation. Great Vessels: The aortic root is normal size. The ascending aorta is at the upper limits of normal in size. The IVC is of normal diameter and collapses greater than 50% with a sniff. This suggests a low right atrial pressure of 3 mm Hg. Pericardium/ Pleura There is no pericardial effusion. There is no pleural effusion. MMode/2D Measurements & Calculations LVIDd: 4.1 cm AoV Openin.86 cm LVIDs: 2.9 cm LVOT diam: 2.1 cm IVSd: 1.3 cm Ao root diam: 3.7 cm LVPWd: 1.2 cm asc Aorta Diam: 3.9 cm LV robison. diameter/BSA (cm/m^2): 3.8 Ao Arch Diam (Prox Trans): 2.8 cm LV sys. diameter/BSA (cm/m^2): 2.6 FS: 30.6 % EPSS: 0.40 cm LA A2 area: 21.7 cm2 RA long axis: 5.0 cm LA A4 area: 24.4 cm2 RA area: 15.8 cm2 LA length (vol): 5.9 cm RA vol: 42.3 ml LA vol: 75.8 ml RA : 39.1 ml/m2 LA vol index: 70.0 ml/m2 RVD1 (basal): 3.1 cm TAPSE: 3.0 cm Doppler Measurements & Calculations Ao V2 max: 489.8 cm/sec LVOT Max Michael: 105.3 cm/sec Ao V2 mean: 361.4 cm/sec LV V1 max P.4 mmHg Ao V2 VTI: 111.4 cm LV V1 VTI: 26.8 cm Ao max P.0 mmHg Ao mean P.6 mmHg MAGED(I,D): 0.84 cm2 AI P1/2t: 421.2 msec MAGED(V,D): 0.75 cm2 AI dec slope: 261.5 cm/sec2 MAGED indexed to BSA (cm^2/m^2): 0.78 sev ratio: 0.24 MV E max michael: 79.0 cm/sec MV dec time: 0.36 sec MV A max michael: 117.5 cm/sec MV mean P.1 mmHg MV E/A: 0.67 MVA(VTI): 2.2 cm2 Med Peak E' Michael: 5.9 cm/sec E/E' med: 13.4 Lat Peak E' Michael: 6.3 cm/sec E/E' lat: 12.6 E/e' average: 13.0 TR max michael: 239.4 cm/sec PA V2 max: 97.9 cm/sec TR max P.9 mmHg PA V2 mean: 73.6 cm/sec PA mean P.4 mmHg MV V2 mean: 64.9 cm/sec SV(LVOT): 93.6 ml MV V2 VTI: 42.5 cm Reading Physician:04:30 PM
== END ==
PROVIDERS: PCP Physician Assistant; Referring Provider Internal Medicine Cardiovascular Disease; Visit Provider Internal Medicine Cardiovascular Disease
DX: I35.2 Nonrheumatic aortic (valve) stenosis with insufficiency (principal)
CPT/HCPCS: 93306

== ENCOUNTER 2022-08-23 10:15 | Emergency (ER) | payer OTHER, SELFPAY ==
[2022-08-23 10:24] VITALS: BP 153/68; PULSE 68; RESP 16; TEMP 36.8; O2SAT 97
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
--- NOTE | 2022-08-23 12:07 | PC.NURSE ---
Patient was called 2-3 times over the last twenty minutes. We looked for him in imaging and in the lobby. [facility] left a message with him. He left before I was able to perform any assessment or complete the triage.
== END 2022-08-23 12:09 | disposition home or self-care (01) ==
PROVIDERS: Emergency Provider Nurse Practitioner Critical Care Medicine; PCP Physician Assistant
DX: S80.11XA Contusion of right lower leg, initial encounter (principal); V89.2XXA Person injured in unspecified motor-vehicle accident, traffic, initial encounter
CPT/HCPCS: 73590; 93971; 99281; 99283

== ENCOUNTER → 2023-09-19 07:37 | Outpatient (CLI) | payer OTHER, SELFPAY ==
[2023-09-19 09:07] LABS: Add Manual Diff / Slide Review NO; Basophils Absolute Auto 100 /uL (0-100); Eosinophils Absolute Auto 300 /uL (0-450); Eosinophils Percent Auto 5.5 % (2-4); Hemoglobin 13.6 g/dL (13.5-17.5); Lymphocytes Absolute Auto 1300 /uL (1100-4500); Mean Corpuscular HGB Conc 34.1 % (30-36); Mean Corpuscular Hemoglobin 31.4 PG (26-34); Mean Corpuscular Volume 92.1 fL (80-100); Monocytes Absolute Auto 800 /uL (0-900); Monocytes Percent Auto 13.4 % (3-14); Neutrophils Absolute Auto 3400 /uL (1500-7000); Neutrophils Percent Auto 58.1 % (50-75); Platelet Count 228 X10^3/uL (150-400); Red Blood Cell Count 4.34 X10^6/uL (4.5-5.9); Red Cell Distribution Width 12.9 % (11.6-14.8); White Blood Cell Count 5.8 X10^3/uL (4.5-11.0)
[2023-09-19 09:24] LABS: Alanine Aminotransferase 20 IU/L (<50); Albumin 4.2 g/dL (3.5-5.0); Albumin Globulin Ratio 1.4 (1.0-2.8); Alkaline Phosphatase 87 U/L (38-126); Aspartate Aminotransferase 38 IU/L (17-59); BUN Creatinine Ratio 18.3 (6-22); Bilirubin Total 0.5 mg/dL (0.2-1.3); Blood Urea Nitrogen 26 mg/dL (9-20); Calcium 9.4 mg/dL (8.4-10.2); Carbon Dioxide 29 mmol/L (22-32); Chloride 104 mmol/L (98-107); Cholesterol 145 mg/dL (140-199); Estimated Glomerular Filt Rate 48 mL/min (>60); Glucose 95 mg/dL (80-110); HDL Cholesterol 72 mg/dL (40-60); HEMOLYSIS < 15 (0-50); LDL Cholesterol Calculated 52 mg/dL (<100); Potassium 5.2 mmol/L (3.4-5.1); Sodium 139 mmol/L (137-145); Total Protein 7.2 g/dL (6.3-8.2); Triglycerides 106 mg/dL (35-150)
[2023-09-19 09:37] LABS: Free T4, Direct Thyroxine 1.11 ng/dL (0.78-2.19)
[2023-09-19 09:51] LABS: Thyroid Stimulating Hormone 5.22 uIU/mL (0.47-4.68)
== END ==
PROVIDERS: PCP Physician Assistant; Referring Provider Physician Assistant; Visit Provider Physician Assistant
DX: N18.30 Chronic kidney disease, stage 3 unspecified (principal); E03.9 Hypothyroidism, unspecified; E78.5 Hyperlipidemia, unspecified
CPT/HCPCS: 36415; 80053; 80061; 84439; 84443; 85025

== ENCOUNTER 2024-03-26 07:47 | Emergency (ER) | payer OTHER, SELFPAY ==
[2024-03-26] VITALS (33 sets, daily range): BP systolic 158–193; BP diastolic 69–81; PULSE 64–78; RESP 14–29; TEMP 36.7; O2SAT 91–97; BMI 216.7
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
--- NOTE | 2024-03-26 07:55 | DI.CT.S_ITS ---
PROCEDURE: CT HEAD/BRAIN WO CON INDICATIONS: trauma TECHNIQUE: Noncontrast 4.5 mm thick angled axial sections acquired from the foramen magnum to the vertex, with coronal and sagittal reformats. For radiation dose reduction, the following was used: automated exposure control, adjustment of mA and/or kV according to patient size. COMPARISON: [facility], CT, CT HEAD/BRAIN WO CON, 01/22/2018, 7:25. FINDINGS: Image quality: Diagnostic. CSF spaces: Basal cisterns are patent. No extra-axial fluid collections. The ventricles are symmetric in size and shape. Brain: No intracranial bleeds or masses. There is cerebral volume loss for age, with resultant ventricular and sulcal prominence. There are periventricular and deep white matter chronic small vessel ischemic changes. There is intracranial internal carotid artery atherosclerosis. Skull and face: Calvarium and visualized facial bones appear intact, without suspicious lesions. Sinuses: Visualized sinuses and mastoids are clear. IMPRESSION: No acute intracranial abnormality. Dictated by: Toni Wyatt M.D. on 03/26/2024 at 8:13 Approved by: Toni Wyatt M.D. on 03/26/2024 at 8:15
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
--- NOTE | 2024-03-26 07:55 | DI.CT.S_ITS ---
PROCEDURE: CT CERVICAL SPINE WO CON INDICATIONS: trauma TECHNIQUE: Noncontrast 3 mm thick sections acquired from the skull base to the T4 level. Sagittal and coronal reformats were then constructed. For radiation dose reduction, the following was used: automated exposure control, adjustment of mA and/or kV according to patient size. COMPARISON: [facility], CT, CT CERVICAL SPINE WO CON, 01/22/2018, 7:25. FINDINGS: Image quality: Excellent. Bones: Slightly increased moderate spondylosis of the cervical spine. Likely degenerative deformity of the odontoid process, no acute displaced fracture or dislocation is seen. Partially seen thoracic spinal fusion hardware. Soft tissues: No pathologic prevertebral soft tissue swelling. There are vascular calcifications. 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 IMPRESSION: No displaced fracture or traumatic subluxation. Moderate spondylosis. If there is high concern for further derangement, consider MRI evaluation. Dictated by: Lorenzo Dodd M.D. on 03/26/2024 at 8:23 Approved by: Lorenzo Dodd M.D. on 03/26/2024 at 8:25
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
--- NOTE | 2024-03-26 08:06 | PC.NURSE ---
called next of kin, daughter listed, unable to leave message as voice mailbox simply said bye. Texted number from charge phone.
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
[2024-03-26 08:16] LABS: Add Manual Diff / Slide Review NO; Basophils Absolute Auto 0 /uL (0-100); Basophils Percent Auto 0.5 % (0-2); Eosinophils Absolute Auto 400 /uL (0-450); Eosinophils Percent Auto 3.7 % (2-4); Hematocrit 39.1 % (41-53); Hemoglobin 13.2 g/dL (13.5-17.5); Lymphocytes Absolute Auto 2300 /uL (1100-4500); Lymphocytes Percent Auto 23.7 % (25-40); Mean Corpuscular HGB Conc 33.7 % (30-36); Mean Corpuscular Hemoglobin 31.1 PG (26-34); Mean Corpuscular Volume 92.4 fL (80-100); Monocytes Absolute Auto 600 /uL (0-900); Neutrophils Absolute Auto 6300 /uL (1500-7000); Neutrophils Percent Auto 66.1 % (50-75); Platelet Count 222 X10^3/uL (150-400); Red Blood Cell Count 4.24 X10^6/uL (4.5-5.9); Red Cell Distribution Width 12.9 % (11.6-14.8); White Blood Cell Count 9.6 X10^3/uL (4.5-11.0)
[2024-03-26 08:21] LABS: INR 0.9 (0.9-1.3); Prothrombin Time 10.7 SECONDS (9.4-12.5)
[2024-03-26 08:24] LABS: Alanine Aminotransferase 21 IU/L (<50); Albumin Globulin Ratio 1.4 (1.0-2.8); Alkaline Phosphatase 74 U/L (38-126); Aspartate Aminotransferase 37 IU/L (17-59); BUN Creatinine Ratio 20.5 (6-22); Bilirubin Total 0.5 mg/dL (0.2-1.3); Blood Urea Nitrogen 32 mg/dL (9-20); Calcium 9.3 mg/dL (8.4-10.2); Carbon Dioxide 26 mmol/L (22-32); Chloride 105 mmol/L (98-107); Estimated Glomerular Filt Rate 42 mL/min (>60); Globulin 2.8 g/dL (1.7-4.1); Glucose 111 mg/dL (80-110); HEMOLYSIS 37 (0-50); Potassium 4.6 mmol/L (3.4-5.1); Sodium 137 mmol/L (137-145); Total Protein 6.8 g/dL (6.3-8.2)
[2024-03-26 08:26] LABS: Lactate (Lactic Acid) 2.2 mmol/L (0.7-2.1)
[2024-03-26 08:29] LABS: PTT Partial Thromboplastin Tim 29 SECONDS (25.1-36.5)
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
--- NOTE | 2024-03-26 08:34 | EKG_ITS ---
[facility] [address] [place] [address] Test Date: 2024-03-26 Pat Name: Genaro Moctezuma Department: [facility] Room: Gender: Male Sap Data Analyst: JOSEFA : 1935 Requested By: Order Number: [id number] Reading MD: Ace Gerardo Measurements Intervals [place] Rate: 67 P: 61 MN: 192 QRS: 49 QRSD: 82 T: 117 QT: 394 QTc: 416 Interpretive Statements Normal sinus rhythm Nonspecific ST and T wave abnormality Electronically Signed On 03-26-2024 15:12:59 PST by Ace Gerardo
--- NOTE | 2024-03-26 08:42 | PC.NURSE ---
Pt arrived to ED via EMS with immobilized left ankle open fracture. Primary assessment completed. VSS. Pt alert but not responding in words, per medics was responding prior to prehospital fentanly. 2lnc applied for 90% o2sat Dr. Ilene ponce and pt tolerated. secured with christiano and orthoglass support. Pt to ct and XRAY with RN on monitor. Mental status improved. Alert and oriente x4.improvement to color of toes and cap refill to 3 seconds now. C-collar cleared. . Removed c-collar. laceration to left arm noted. bleeding controlled with gauze. Pt denies pain at this time. denies need to urinate. vss reman stable.
[2024-03-26] MEDS: HYDROMORPHONE 0.5 MG INJ IV ×2 (08:56→10:04)
[2024-03-26] MEDS: ONDANSETRON 4 MG/2 ML INJ IV (08:56)
[2024-03-26 09:02] LABS: Troponin I 0.142 ng/mL (0.01-0.034)
[2024-03-26 09:06] LABS: Hematocrit 38.2 % (41-53); Hemoglobin 12.9 g/dL (13.5-17.5)
[2024-03-26] MEDS: CEFAZOLIN 2 GM/100 ML PREMIX 100 ML IV (09:14)
[2024-03-26] MEDS: TET,DIPH,PERTUSS(ACELL),VAC/PF 0.5 ML SYRINGE IM (09:14)
[2024-03-26 09:39] LABS: Reflexed Lactate in 2 Hours Y
--- NOTE | 2024-03-26 09:48 | DI.RAD.S_ITS ---
PROCEDURE: XR ANKLE LT 2V INDICATIONS: post reduction splinting TECHNIQUE: 3 views of the ankle were acquired. COMPARISON: [facility], CR, XR ANKLE LT 2V, 03/26/2024, 7:55. FINDINGS: Bones: Distal fibula and medial malleolus fractures stable in alignment. Stable mild widening of the medial ankle mortise. Soft tissues: No tibiotalar joint effusion. Achilles tendon appears normal. IMPRESSION: Medial malleolus and distal fibular fracture stable in alignment. Dictated by: Nina Solano MD, PhD on 03/26/2024 at 9:58 Approved by: Nina Solano MD, PhD on 03/26/2024 at 10:00
[2024-03-26 10:03] LABS: Appearance Urine UA CLEAR; Bilirubin Urine UA NEGATIVE (NEGATIVE); Color Urine UA YELLOW; Glucose Urine UA NEGATIVE (Negative); Ketones Urine UA NEGATIVE (NEGATIVE); Leukocyte Esterase Urine UA NEGATIVE (NEGATIVE); Nitrite Urine UA NEGATIVE (Negative); Occult Blood Urine UA 1+ (Negative); Protein Urine UA TRACE (Negative); Urobilinogen Urine UA 0.2 E.U./dL (0.2); pH Urine UA 6.5 (4.5-8.0)
--- NOTE | 2024-03-26 10:03 | PC.NURSE ---
Call Pinky at [phone],spoke to July to start a patient transfer case. Dai called back at 0900. Accepted by Dr. Luna at 0911. ED to ED transfer
[2024-03-26 10:10] LABS: Urine Volume 10mL (spun)
[2024-03-26 10:11] LABS: Bacteria Urine Few (2-10); RBC Urine 1-5/HPF (0-5/HPF); WBC Urine None Seen (0-5/HPF)
[2024-03-26 10:12] LABS: Culture Indicated Urine Cult Not Indicated; Squamous Epithelial Cell Urine None Seen (0-5/HPF)
--- NOTE | 2024-03-26 10:24 | PC.NURSE ---
Pt belongings forgot at ED. Cell Stripper Final to contact [facility]. label places and secured. keys, jacket, wallet, phone and hat in back.
[2024-03-26 10:40] LABS: Troponin I 0.158 ng/mL (0.01-0.034)
== END 2024-03-26 10:18 | disposition short-term general hospital (02) ==
PROVIDERS: Emergency Provider Emergency Medicine; PCP Physician Assistant
DX: S82.852B Displaced trimalleolar fracture of left lower leg, initial encounter for open fracture type I or II (principal); S22.32XA Fracture of one rib, left side, initial encounter for closed fracture; S40.812A Abrasion of left upper arm, initial encounter; R41.82 Altered mental status, unspecified; S22.20XA Unspecified fracture of sternum, initial encounter for closed fracture; R79.89 Other specified abnormal findings of blood chemistry; V03.10XA Pedestrian on foot injured in collision with car, pick-up truck or van in traffic accident, initial encounter; Y93.01 Activity, walking, marching and hiking; Y92.410 Unspecified street and highway as the place of occurrence of the external cause; Z23 Encounter for immunization
CPT/HCPCS: 27818; 29505; 36415; 70450; 71045; 71275; 72125; 72170; 73552; 73590; 73600; 74177; 80053; 81001; 83605; 84484; 85014; 85018; 85025; 85610; 85730; 86850; 86900; 86901; 90471; 93005; 96365; 96375; 99285; 99291; 99292; 90715; G0390; J0690; J1171; J2405; Q9967

== ENCOUNTER → 2024-04-22 11:40 | Outpatient (CLI) | payer OTHER, SELFPAY ==
--- NOTE | 2024-04-22 11:46 | DI.RAD.S_ITS ---
PROCEDURE: XR ANKLE LT MIN 3V INDICATIONS: Displaced bimalleolar fracture of left lower leg, subsequent TECHNIQUE: 3 views of the ankle were acquired. COMPARISON: [facility], CR, XR ANKLE LT 2V, 03/26/2024, 9:45. [facility], CR, XR ANKLE LT 2V, 03/26/2024, 7:55. FINDINGS: Bones: THERE HAS BEEN ORIF LEFT ANKLE WITH ANATOMICAL BONY ALIGNMENT. NO EVIDENCE OF HARDWARE FAILURE. Soft tissues: No tibiotalar joint effusion. Achilles tendon appears normal. IMPRESSION: ORIF LEFT ANKLE. Dictated by: Roly Mcdaniel M.D. on 04/22/2024 at 12:34 Approved by: Roly Mcdaniel M.D. on 04/22/2024 at 12:49
== END ==
PROVIDERS: PCP Physician Assistant; Referring Provider Registered Nurse; Visit Provider Registered Nurse
DX: S82.842 Displaced bimalleolar fracture of left lower leg (principal); Z96.7 Presence of other bone and tendon implants
CPT/HCPCS: 73610

== ENCOUNTER → 2024-05-25 15:59 | Outpatient (CLI) | payer OTHER, SELFPAY ==
--- NOTE | 2024-05-25 16:00 | DI.ECHO.S_ITS ---
[facility] : : [address] : : [place] : : [id number] : : Phone: [phone] Echocardiogram Report + + :Name: SUMAYA CHERRY Study Date: 05/25/2024 Height: 70 in : :Hospital ReadingLocation: Weight: 195 lb : : Gender: Male BSA: 2.1 m2 : :: 1935 Age: 88 yrs BP: 136/70 mmHg: :Reason For Study: S/P TAVR : :Ordering Physician: MITRA, : :DARA Performed By: Rg Christie : :Referring: DARA MANRIQUEZ : + + Interpretation Summary The left ventricle is normal in size. The left ventricular ejection fraction is normal. The ejection fraction is estimated to be 60-65%. There has been no significant change in LVEF since the previous exam. The right ventricle is at the upper limits of normal in size. The right ventricular systolic function is normal. 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 Previously severe aortic stenosis. There is a bioprosthetic aortic valve. The prosthetic aortic valve is well-seated. The peak aortic velocity is 2.3 m/sec. The aortic valve mean gradient is 11.5 mmHg. There is mild perivalvular regurgitation around the prosthetic aortic valve. The IVC is of normal diameter and collapses greater than 50% with a sniff. This suggests a low right atrial pressure of 3 mm Hg. Procedure: A two-dimensional transthoracic echocardiogram with color flow and Doppler was performed. The study quality was technically adequate. Comparison is made with the echocardiogram of 04/20/2022. The patient was in normal sinus rhythm during the exam. Left Ventricle: The left ventricle is normal in size. Left ventricular wall thickness is mild-moderately increased. Proximal septal thickening is noted. There is no echo evidence for significant left ventricular outflow tract obstruction. There is no ventricular septal defect visualized. The ejection fraction is estimated to be 60-65%. The left ventricular ejection fraction is normal. There has been no significant change since the previous exam. There are no focal wall motion abnormalities. Diastolic parameters suggest a relaxation abnormality of the left ventricle, consistent with probable normal filling pressures. Right Ventricle: The right ventricle is at the upper limits of normal in size. The right ventricular systolic function is normal. Atria: The left atrial size is normal. The left atrium has mildly decreased in size since the prior echo exam. Right atrial size is normal. There is no Doppler evidence for an interatrial shunt. Mitral Valve: Heavy posterior mitral annulus calcification without any significant stenosis. There is trace mitral regurgitation. Aortic Valve: 26mm Ranjith Ultra Resilia TAVR. There is a bioprosthetic aortic valve. The prosthetic aortic valve is well-seated. There is mild perivalvular regurgitation around the prosthetic aortic valve. The peak aortic velocity is 2.3 m/sec. The aortic valve mean gradient is 11.5 mmHg. Tricuspid Valve: The tricuspid valve leaflets are thin and pliable. No tricuspid regurgitation. Pulmonary artery pressures cannot be estimated because of the lack of a measurable TR jet velocity. Pulmonic Valve: The pulmonic valve is not well visualized. There is no pulmonic valvular regurgitation. Great Vessels: The dimensions of the ascending aorta are normal. The ascending aorta could not be visualized. The pulmonary is not well visualized. The IVC is of normal diameter and collapses greater than 50% with a sniff. This suggests a low right atrial pressure of 3 mm Hg. Pericardium/ Pleura There is no pericardial effusion. There is no pleural effusion. MMode/2D Measurements & Calculations LVIDd: 4.1 cm LVOT diam: 1.9 cm LVIDs: 2.9 cm Ao Arch Diam (Prox Trans): 1.9 cm FS: 27.2 % EPSS: 1.1 cm IVSd: 1.5 cm LVPWd: 1.5 cm LV robison. diameter/BSA (cm/m^2): 2.0 LV sys. diameter/BSA (cm/m^2): 1.4 LA A2 area: 19.7 cm2 RA long axis: 4.3 cm LA A4 area: 14.2 cm2 RA area: 13.9 cm2 LA length (vol): 5.3 cm RA vol: 38.0 ml LA vol: 44.8 ml RA : 18.4 ml/m2 LA vol index: 21.7 ml/m2 IVC diam: 1.4 cm RVD1 (basal): 4.2 cm RVD2 (mid): 3.5 cm TAPSE: 2.6 cm Doppler Measurements & Calculations Ao V2 max: 231.5 cm/sec LVOT Max Michael: 112.1 cm/sec Ao V2 mean: 158.8 cm/sec LV V1 max P.0 mmHg Ao max P.4 mmHg LV V1 VTI: 25.5 cm Ao mean P.5 mmHg MAGED(I,D): 1.5 cm2 Ao V2 VTI: 48.1 cm MAGED(V,D): 1.4 cm2 sev ratio: 0.53 MAGED indexed to BSA (cm^2/m^2): 0.75 MV E max michael: 82.1 cm/sec PA V2 max: 72.2 cm/sec MV A max michael: 107.2 cm/sec PA V2 mean: 50.4 cm/sec MV E/A: 0.77 PA mean P.2 mmHg Med Peak E' Michael: 5.9 cm/sec PA pr(Accel): 8.8 mmHg E/E' med: 14.0 Lat Peak E' Michael: 6.4 cm/sec E/E' lat: 12.8 E/e' average: 13.4 MV dec time: 0.28 sec SV(LVOT): 74.3 ml Reading Physician:11:56 AM
== END ==
PROVIDERS: PCP Physician Assistant; Referring Provider Physician Assistant; Visit Provider Physician Assistant
DX: I35.1 Nonrheumatic aortic (valve) insufficiency (principal); I34.81 Nonrheumatic mitral (valve) annulus calcification; Z95.2 Presence of prosthetic heart valve
CPT/HCPCS: 93306

== ENCOUNTER → 2025-01-25 08:38 | Outpatient (CLI) | payer OTHER, SELFPAY ==
[2025-01-25 09:24] LABS: Hematocrit 39.9 % (41-53); Hemoglobin 13.8 g/dL (13.5-17.5); Mean Corpuscular HGB Conc 34.7 % (30-36); Mean Corpuscular Hemoglobin 31.4 PG (26-34); Mean Corpuscular Volume 90.5 fL (80-100); Platelet Count 192 X10^3/uL (150-400)
[2025-01-25 09:51] LABS: Blood Urea Nitrogen 32 mg/dL (9-20); Calcium 9.6 mg/dL (8.4-10.2); Carbon Dioxide 28 mmol/L (22-32); Chloride 102 mmol/L (98-107); Cholesterol 142 mg/dL (140-199); Estimated Glomerular Filt Rate 45 mL/min (>60); Glucose 98 mg/dL (70-99); HDL Cholesterol 67 mg/dL (40-60); HEMOLYSIS < 15 (0-50); Sodium 138 mmol/L (137-145); Triglycerides 152 mg/dL (35-150)
[2025-01-25 09:53] LABS: Potassium 5.4 mmol/L (3.4-5.1)
== END ==
PROVIDERS: PCP Physician Assistant; Referring Provider Internal Medicine Cardiovascular Disease; Visit Provider Internal Medicine Cardiovascular Disease
DX: I10 Essential (primary) hypertension (principal); E78.5 Hyperlipidemia, unspecified
CPT/HCPCS: 36415; 80048; 80061; 85027